=== PATIENT | male | born 1940 | race Caucasian/White ===

== ENCOUNTER 2017-01-10 14:59 | Emergency (ER) | payer MEDICARE, BC ==
[~2017-01-10] VITALS: Ht 175.3 cm; Wt 91.8 kg
[~2017-01-10 14:59] MED LIST: ADVIL200 MG PO; ASPI325T6 PO; ASPIRIN 32325 MG/TAB PO; ASPIRIN 81M81 MG/TA2 PO; BUFFERED ASPIR325 M1 PO; CARDURA 1MG1 MG PO; CEPHALEXIN500 M1 PO; EXCEDRIN1 TAB PO; FERROUS SU325 MG/TAB PO; FOLIC ACID 40400 MCG PO; FOLIC ACID0.4 MG PO; HCTZ; MEDROL 4MG DOSPA4 MG PO; NIACIN50 MG PO; NORCO 325 MG-7.1 TAB PO; PEPCID AC 10MG10 MG PO; PRILOSEC 20MG20 MG PO; SENOKOT8.6 MG PO; TYLENOL EXTRA500 M1 PO; ULTRAM 50MG TAB50 MG PO; VITAMIN C500 MG PO
[2017-01-10 15:05] VITALS: TEMP 101.1
[2017-01-10 16:21] LABS: BASO # 0.1 (0.0-0.2); BASO % 0.4 % (0.0-2.0); EOS % 0.2 % (0-4.0); GRAN # 11.5 (1.4-6.5); GRAN % 86.6 % (42.2-75.2); HEMATOCRIT 42.3 % (42.0-52.0); HEMOGLOBIN 14.1 g/dl (13.5-18.0); LYMPH # 0.8 (1.2-3.4); LYMPH % 5.9 % (20.0-51.0); MEAN CELL VOLUME 95 fl (80.0-100.0); MEAN CORPUSCULAR HEMOGLOBIN 32 pg (27.0-31.0); MEAN CORPUSCULAR HGB CONC 33 g/dl (33.0-37.0); MEAN PLATELET VOLUME 9.5 fl (7.4-10.4); MONO # 0.9 (0.1-0.6); MONO % 6.4 % (1.7-9.3); PLATELET COUNT 174 K/mm3 (130-400); RED BLOOD COUNT 4.47 M/mm3 (4.20-5.60); WHITE BLOOD COUNT 13.3 K/mm3 (4.8-10.8)
[2017-01-10 16:37] LABS: ADJUSTED CALCIUM 8.8 mg/dL (8.4-10.2); ALBUMIN 3.8 gm/dL (3.5-5.0); BILIRUBIN,TOTAL 0.9 mg/dL (0.0-1.0); CALCIUM 8.6 mg/dL (8.4-10.2); CREATININE, serum 0.88 mg/dL (0.66-1.25); POTASSIUM 3.9 mmol/L (3.4-5.0); TOTAL PROTEIN 6.7 gm/dL (6.4-8.2)
[2017-01-10] MEDS ORDERED: ZOFRAN 4MG T4 MG/TAB PO (19:26)
[2017-01-10] MEDS ORDERED: CIPRO 500MG TA500 MG PO (19:26)
[2017-01-10] MEDS ORDERED: FLAGYL500 MG PO (19:26)
[2017-01-10 19:41] VITALS: BP 147/64; PULSE 87
== END 2017-01-10 19:41 | disposition home or self-care (01) ==
LOC: COL.ER 14:59
PROVIDERS: Emergency Medicine
DX: K52.89 Other specified noninfective gastroenteritis and colitis (principal); R42 Dizziness and giddiness; N23 Unspecified renal colic; N20.1 Calculus of ureter; I10 Essential (primary) hypertension
CPT/HCPCS: J1885; J2405; J7030; Q9967

== ENCOUNTER 2017-04-18 19:23 | Emergency (ER) | payer MEDICARE, BC ==
[~2017-04-18] VITALS: Ht 177.8 cm; Wt 90.9 kg
[~2017-04-18 19:23] MED LIST changes: +CIPRO 500MG TA500 MG PO; +FLAGYL500 MG PO; +ZOFRAN 4MG T4 MG/TAB PO
[2017-04-18 19:29] VITALS: TEMP 97.5
[2017-04-18] MEDS ORDERED: OMEGA-3 1000 MG1 CAP PO (19:34)
[2017-04-18 20:15] LABS: BASO # 0.1 (0.0-0.2); BASO % 0.5 % (0.0-2.0); EOS # 0.1 (0.0-0.7); EOS % 0.9 % (0-4.0); GRAN # 10.6 (1.4-6.5); GRAN % 78.2 % (42.2-75.2); HEMATOCRIT 45.4 % (42.0-52.0); HEMOGLOBIN 14.8 g/dl (13.5-18.0); LYMPH # 1.7 (1.2-3.4); LYMPH % 12.8 % (20.0-51.0); MEAN CELL VOLUME 95 fl (80.0-100.0); MEAN CORPUSCULAR HEMOGLOBIN 31 pg (27.0-31.0); MEAN CORPUSCULAR HGB CONC 33 g/dl (33.0-37.0); MEAN PLATELET VOLUME 9.7 fl (7.4-10.4); MONO % 7.1 % (1.7-9.3); PLATELET COUNT 188 K/mm3 (130-400); RED BLOOD COUNT 4.78 M/mm3 (4.20-5.60); WHITE BLOOD COUNT 13.6 K/mm3 (4.8-10.8)
[2017-04-18 20:26] LABS: ADJUSTED CALCIUM 9.6 mg/dL (8.4-10.2); ALANINE AMINOTRANSFERASE 33 U/L (21-72); ALBUMIN 4.3 gm/dL (3.5-5.0); ALKALINE PHOSPHATASE 82 U/L (50-136); ANION GAP 9 mmol/L (7-16); BILIRUBIN,TOTAL 0.5 mg/dL (0.0-1.0); BLOOD UREA NITROGEN 17 mg/dL (9-20); CALCIUM 9.8 mg/dL (8.4-10.2); CARBON DIOXIDE 28 mmol/L (22-30); CHLORIDE 102 mmol/L (98-107); CREATININE, serum 0.83 mg/dL (0.66-1.25); GLUCOSE 103 mg/dL (74-106); POTASSIUM 4.8 mmol/L (3.4-5.0); PROTHROMBIN TIME 11.7 SECONDS (9.7-12.8); SODIUM 139 mmol/L (137-145); TOTAL PROTEIN 7.3 gm/dL (6.4-8.2)
[2017-04-18 20:28] LABS: PARTIAL THROMBOPLASTIN TIME 30.3 SECONDS (26.0-37.0)
[2017-04-18 20:38] LABS: TROPONIN-I < 0.012 ng/mL (0.000-0.034)
[2017-04-18 21:48] LABS: COLLECTION METHOD CLEAN CATCH
[2017-04-18 21:58] LABS: MUCOUS Present /lpf; PH 5 (5-8); SQUAMOUS EPITHELIAL 0-2 /hpf; URINE APPEARANCE Clear; URINE BACTERIA None Seen /hpf; URINE BILIRUBIN Negative (NEGATIVE); URINE BLOOD Negative (NEGATIVE); URINE COLOR Straw; URINE GLUCOSE Negative (NEGATIVE); URINE KETONE Negative (NEGATIVE); URINE LEUKOCYTE ESTERASE Negative (NEGATIVE); URINE PROTEIN(semi-quant) Negative (NEGATIVE); URINE RBC None Seen /hpf; URINE UROBILINOGEN Negative (NEGATIVE); URINE WBC 0-2 /hpf
[2017-04-18 23:45] VITALS: BP 121/79; PULSE 71
== END 2017-04-18 23:46 | disposition home or self-care (01) ==
LOC: COL.ER 19:23
PROVIDERS: Emergency Medicine
DX: R55 Syncope and collapse (principal); K21.9 Gastro-esophageal reflux disease without esophagitis; Z95.0 Presence of cardiac pacemaker
CPT/HCPCS: J7050; Q9967

== ENCOUNTER 2017-07-11 11:58 | Day surgery (SDC) | payer MEDICARE, BC ==
[~2017-07-11] VITALS: Ht 175.3 cm; Wt 93.2 kg
[2017-07-11] VITALS (8 sets, daily range): BP systolic 107–157; BP diastolic 58–78; PULSE 59–78; TEMP 97.5–98.1
[~2017-07-11 11:58] MED LIST changes: +OMEGA-3 1000 MG1 CAP PO
[2017-07-11] MEDS ORDERED: MULTI VITAMINS1 TAB PO (12:22)
[2017-07-11] MEDS ORDERED: ANTIVERT 12.512.5 MG PO (12:38)
[2017-07-11 13:03] LABS: BASO # 0.1 (0.0-0.2); BASO % 0.5 % (0.0-2.0); EOS # 0.2 (0.0-0.7); EOS % 1.7 % (0-4.0); GRAN # 6.1 (1.4-6.5); HEMATOCRIT 44.8 % (42.0-52.0); LYMPH # 1.7 (1.2-3.4); LYMPH % 18.4 % (20.0-51.0); MEAN CELL VOLUME 94 fl (80.0-100.0); MEAN CORPUSCULAR HEMOGLOBIN 32 pg (27.0-31.0); MEAN CORPUSCULAR HGB CONC 34 g/dl (33.0-37.0); MEAN PLATELET VOLUME 9.3 fl (7.4-10.4); MONO # 1.1 (0.1-0.6); MONO % 11.9 % (1.7-9.3); PLATELET COUNT 225 K/mm3 (130-400); RED BLOOD COUNT 4.75 M/mm3 (4.20-5.60)
[2017-07-11 13:14] LABS: ALBUMIN 4.1 gm/dL (3.5-5.0); BILIRUBIN,TOTAL 0.3 mg/dL (0.0-1.0); CALCIUM 9.3 mg/dL (8.4-10.2); CREATININE, serum 0.84 mg/dL (0.66-1.25); TOTAL PROTEIN 7.3 gm/dL (6.4-8.2)
[2017-07-12 02:17] VITALS: BP 102/52; PULSE 74; TEMP 98.1
[2017-07-12 06:16] VITALS: BP 100/53; PULSE 65; TEMP 98.1
[2017-07-12 09:11] VITALS: BP 118/59; PULSE 62; TEMP 98.5
[2017-07-12] MEDS ORDERED: NORCO 325 MG-7.1 TAB PO (10:19)
== END 2017-07-12 10:55 | disposition home or self-care (01) ==
LOC: COL.ER 11:58 → SDCO 14:51 → SURG 17:00 → SDCO 07-12 10:55
PROVIDERS: Physician Assistant
DX: K80.10 Calculus of gallbladder with chronic cholecystitis without obstruction (principal); M19.90 Unspecified osteoarthritis, unspecified site; K44.9 Diaphragmatic hernia without obstruction or gangrene; K21.9 Gastro-esophageal reflux disease without esophagitis; Z96.653 Presence of artificial knee joint, bilateral; Z95.1 Presence of aortocoronary bypass graft; Z88.6 Allergy status to analgesic agent
CPT/HCPCS: OP; J1885; J1956; J2405; J2704; J3010; J7030

== ENCOUNTER 2018-01-22 15:49 | Inpatient (IN) | payer MEDICARE, BC ==
[~2018-01-22] VITALS: Ht 175.3 cm; Wt 84.5 kg
[~2018-01-22 15:49] MED LIST changes: +ANTIVERT 12.512.5 MG PO; +MULTI VITAMINS1 TAB PO
[2018-03-24] VITALS (11 sets, daily range): BP systolic 95–135; BP diastolic 45–70; PULSE 60–75; TEMP 97–98.4
[2018-03-24] MEDS ORDERED: TOPROL XL 50MG50 MG PO (07:24)
[2018-03-24] MEDS ORDERED: NEXIUM 24HR20 M1 PO (07:25)
[2018-03-24] MEDS ORDERED: FLOMAX 0.40.4 MG/CAP PO (15:40)
[2018-03-25] VITALS (7 sets, daily range): BP systolic 95–103; BP diastolic 48–87; PULSE 60–81; TEMP 97.8–99.9
[2018-03-25 06:16] LABS: HEMATOCRIT 37.9 % (42.0-52.0); HEMOGLOBIN 12.7 g/dl (13.5-18.0)
[2018-03-26 02:47] VITALS: BP 104/54; PULSE 63; TEMP 98.3
[2018-03-26] MEDS ORDERED: ROXICODONE 55 MG/TAB PO (06:31)
[2018-03-26] MEDS ORDERED: ULTRAM 50MG TAB50 MG PO (06:31)
[2018-03-26] MEDS ORDERED: NORCO 325 MG-7.1 TAB PO (06:31)
[2018-03-26] MEDS ORDERED: ASPI325T6 PO (06:41)
[2018-03-26 07:12] VITALS: BP 112/61; PULSE 60; TEMP 97
== END 2018-03-26 11:50 | disposition home or self-care (01) | DRG 470 ==
LOC: JCC 03-24 06:45
PROVIDERS: Orthopaedic Surgery
PROC: 0SR902A Replacement of Right Hip Joint with Metal on Polyethylene Synthetic Substitute, Uncemented, Open Approach (ICD-10-PCS; principal; 2018-03-24 09:45)
DX: M16.11 Unilateral primary osteoarthritis, right hip (principal); Z95.0 Presence of cardiac pacemaker; Z85.828 Personal history of other malignant neoplasm of skin; I08.1 Rheumatic disorders of both mitral and tricuspid valves
CPT/HCPCS: A4314; A4315; A9284; C1713; C1776; J0690; J1100; J1885; J2250; J2405; J2704; J3010; J7120

== ENCOUNTER → 2018-03-19 | Outpatient (CLI) | payer MEDICARE, BC ==
[2018-03-19 09:24] LABS: INR 1.2 (0.8-3.0); PROTHROMBIN TIME 13.1 SECONDS (9.7-12.8)
[2018-03-19 09:54] LABS: HIV 1/2 Antibodies Non-Reactive; HIV-1p24 Antigen Non-Reactive
== END ==
LOC: COL.LAB 08:49 → SURG 03-24 08:47 → EDSTATUS 03-24 08:48
PROVIDERS: Orthopaedic Surgery
DX: Z01.812 Encounter for preprocedural laboratory examination (principal); M16.11 Unilateral primary osteoarthritis, right hip; Z79.01 Long term (current) use of anticoagulants

== ENCOUNTER → 2018-10-22 | Outpatient (CLI) | payer MEDICARE, BC ==
[~2018-10-22] MED LIST changes: +FLOMAX 0.40.4 MG/CAP PO; +NEXIUM 24HR20 M1 PO; +ROXICODONE 55 MG/TAB PO; +TOPROL XL 50MG50 MG PO
== END ==
LOC: COL.RAD 09:38
DX: E04.1 Nontoxic single thyroid nodule (principal)

== ENCOUNTER → 2018-10-30 | Outpatient (CLI) | payer MEDICARE, BC ==
[~2018-10-30] VITALS: Ht 175.3 cm; Wt 89.8 kg
[2018-10-30 12:51] VITALS: BP 130/84; PULSE 70
[2018-10-30 14:30] VITALS: BP 151/93; PULSE 80
== END ==
LOC: COL.RAD 12:36
DX: E04.1 Nontoxic single thyroid nodule (principal)

== ENCOUNTER 2020-02-05 11:16 | Emergency (ER) | payer MEDICARE, BC ==
[~2020-02-05] VITALS: Ht 175.3 cm; Wt 90.9 kg
[2020-02-05 11:27] VITALS: TEMP 98
[2020-02-05] MEDS ORDERED: MEDROL 4MG DOSPA4 MG PO (12:09)
[2020-02-05 12:21] LABS: BASO # 0.1 (0.0-0.2); BASO % 0.9 % (0.0-2.0); EOS # 0.4 (0.0-0.7); EOS % 5.7 % (0-4.0); GRAN # 4.7 (1.4-6.5); GRAN % 62.1 % (42.2-75.2); HEMATOCRIT 41.1 % (42.0-52.0); HEMOGLOBIN 13.8 g/dl (13.5-18.0); LYMPH # 1.5 (1.2-3.4); LYMPH % 20.4 % (20.0-51.0); MEAN CELL VOLUME 94 fl (80.0-100.0); MEAN CORPUSCULAR HEMOGLOBIN 32 pg (27.0-31.0); MEAN CORPUSCULAR HGB CONC 34 g/dl (33.0-37.0); MEAN PLATELET VOLUME 9.5 fl (7.4-10.4); MONO # 0.8 (0.1-0.6); MONO % 10.6 % (1.7-9.3); PLATELET COUNT 204 K/mm3 (130-400); RED BLOOD COUNT 4.37 M/mm3 (4.20-5.60); REDCELL DISTRIBUTION WIDTH-CV 12.5 % (11.5-14.5)
[2020-02-05 12:24] LABS: INR 1.1 (0.8-3.0); PROTHROMBIN TIME 12.8 SECONDS (9.7-12.8)
[2020-02-05 12:33] LABS: ALANINE AMINOTRANSFERASE 17 U/L (4-49); ALBUMIN 4.1 gm/dL (3.5-5.0); ALKALINE PHOSPHATASE 83 U/L (50-136); ANION GAP 7 mmol/L (7-16); AST,SGOT 29 U/L (15-37); BILIRUBIN,TOTAL 0.5 mg/dL (0.0-1.0); BLOOD UREA NITROGEN 11 mg/dL (9-20); CALCIUM 9.3 mg/dL (8.4-10.2); CARBON DIOXIDE 27 mmol/L (22-30); CHLORIDE 101 mmol/L (98-107); CREATININE, serum 0.94 (0.66-1.25); GLUCOSE 97 mg/dL (74-106); LIPASE 34 U/L (23-300); POTASSIUM 4.2 mmol/L (3.4-5.0); SODIUM 135 mmol/L (137-145)
[2020-02-05 12:46] LABS: TROPONIN-I < 0.012 ng/mL (0.000-0.035)
[2020-02-05 13:10] VITALS: BP 105/68; PULSE 61
== END 2020-02-05 13:10 | disposition home or self-care (01) ==
LOC: COL.ER 11:16
PROVIDERS: Emergency Medicine
DX: R05 Cough (principal); Z20.828 Contact with and (suspected) exposure to other viral communicable diseases; Z95.0 Presence of cardiac pacemaker
CPT/HCPCS: J1100

== ENCOUNTER 2020-08-07 13:16 | Emergency (ER) | payer MEDICARE, BC ==
[~2020-08-07] VITALS: Ht 175.3 cm; Wt 91.8 kg
[2020-08-07 14:52] LABS: BASO % 0.3 % (0.0-2.0); EOS # 0.1 (0.0-0.7); EOS % 1.2 % (0-4.0); GRAN # 8.9 (1.4-6.5); GRAN % 74.5 % (42.2-75.2); HEMATOCRIT 42.6 % (42.0-52.0); LYMPH % 16.4 % (20.0-51.0); MEAN CELL VOLUME 95 fl (80.0-100.0); MEAN CORPUSCULAR HEMOGLOBIN 31 pg (27.0-31.0); MEAN CORPUSCULAR HGB CONC 33 g/dl (33.0-37.0); MEAN PLATELET VOLUME 9.5 fl (7.4-10.4); MONO # 0.8 (0.1-0.6); MONO % 6.9 % (1.7-9.3); PLATELET COUNT 230 K/mm3 (130-400); RED BLOOD COUNT 4.51 M/mm3 (4.20-5.60); REDCELL DISTRIBUTION WIDTH-CV 12.9 % (11.5-14.5)
[2020-08-07 15:09] LABS: ALANINE AMINOTRANSFERASE 24 U/L (4-49); ALKALINE PHOSPHATASE 76 U/L (50-136); ANION GAP 12 mmol/L (7-16); AST,SGOT 24 U/L (15-37); BILIRUBIN,TOTAL 0.3 mg/dL (0.0-1.0); BLOOD UREA NITROGEN 22 mg/dL (9-20); CALCIUM 9.2 mg/dL (8.4-10.2); CARBON DIOXIDE 24 mmol/L (22-30); CHLORIDE 101 mmol/L (98-107); CREATININE, serum 0.96 (0.66-1.25); GLUCOSE 137 mg/dL (74-106); POTASSIUM 4.2 mmol/L (3.4-5.0); SODIUM 137 mmol/L (137-145)
[2020-08-07 15:25] LABS: TROPONIN-I < 0.012 ng/mL (0.000-0.035)
[2020-08-07 15:39] LABS: TSH w REFLEX 0.509 uIU/mL (0.465-4.680)
[2020-08-07 17:36] VITALS: BP 102/61; PULSE 60; TEMP 97.6
== END 2020-08-07 17:38 | disposition home or self-care (01) ==
LOC: COL.ER 13:16
PROVIDERS: Emergency Medicine
DX: S00.83XA Contusion of other part of head, initial encounter (principal); R55 Syncope and collapse; K21.9 Gastro-esophageal reflux disease without esophagitis; Z95.0 Presence of cardiac pacemaker; W01.10XA Fall on same level from slipping, tripping and stumbling with subsequent striking against unspecified object, initial encounter

== ENCOUNTER 2023-07-26 09:18 | Emergency (ER) | payer MEDICARE, BC ==
[~2023-07-26] VITALS: Ht 172.7 cm; Wt 84.1 kg
[2023-07-26 09:25] VITALS: TEMP 97.5
[2023-07-26] MEDS ORDERED: Magnesium Citrate Oral Soln 300 ML BOTTLE PO ONE (12:00)
[2023-07-26 12:25] VITALS: BP 160/67; PULSE 74
== END 2023-07-26 12:25 | disposition home or self-care (01) ==
LOC: COL.ER 09:18
DX: K59.00 Constipation, unspecified (principal); Z90.49 Acquired absence of other specified parts of digestive tract

== ENCOUNTER → 2023-09-25 | Outpatient (CLI) | payer MEDICARE, BC ==
[~2023-09-25] MED LIST changes: +Albuterol 0.083% Neb Soln 2.5 MG/3 ML UD IH ONE; +CARAFATE 1GM1 G PO; +MIRALAX PA17 GM/Dose PO; +MOBIC 7.5MG7.5 MG PO; +STOOL SOFTENER100 M2 PO; +VESICARE 5MG5 MG PO; +WIXELA 250-501 EACH IH
== END ==
LOC: COL.CARD 09-22 12:26
DX: R05.9 Cough, unspecified (principal)

== ENCOUNTER 2023-12-02 07:25 | Inpatient (IN) | payer MEDICARE, BC ==
[~2023-12-02] VITALS: Ht 172.7 cm; Wt 91.8 kg
[~2023-12-02 07:25] MED LIST changes: -Albuterol 0.083% Neb Soln 2.5 MG/3 ML UD IH ONE; +FIBERCON PO; +LUTEIN20 M1 PO
[2023-12-02] MEDS ORDERED: NS 1,000 ML IV ONE (07:45)
[2023-12-02 07:59] LABS: BASO # 0.1 K/mm3 (0.0-0.2); BASO % 0.9 % (0.0-2.0); EOS # 0.2 K/mm3 (0.0-0.7); EOS % 2.7 % (0.0-4.0); GRAN # 3.7 K/mm3 (1.4-6.5); HEMATOCRIT 38.7 % (42.0-52.0); HEMOGLOBIN 13.3 g/dl (13.5-18.0); LYMPH % 29.6 % (20.0-51.0); MEAN CELL VOLUME 90 fl (80.0-100.0); MEAN CORPUSCULAR HEMOGLOBIN 31 pg (27-31); MEAN CORPUSCULAR HGB CONC 34 g/dl (33.0-37.0); MEAN PLATELET VOLUME 8.7 fl (7.4-10.4); MONO # 0.7 K/mm3 (0.1-0.6); MONO % 10.3 % (1.7-9.3); PLATELET COUNT 237 K/mm3 (130-400); REDCELL DISTRIBUTION WIDTH-CV 12.6 % (11.5-14.5)
[2023-12-02 08:10] LABS: INR 1.2 (0.8-3.0); PROTHROMBIN TIME 12.9 SECONDS (9.7-12.8)
[2023-12-02 08:21] LABS: ALANINE AMINOTRANSFERASE 18 U/L (0-55); ALBUMIN 3.7 g/dL (3.4-4.8); ALKALINE PHOSPHATASE 84 U/L (40-150); ANION GAP 10 mmol/L (7-16); AST,SGOT 25 U/L (5-34); BILIRUBIN,TOTAL 0.7 mg/dL (0.2-1.2); BLOOD UREA NITROGEN 10 mg/dL (8-26); CALCIUM 9.6 mg/dL (8.4-10.2); CHLORIDE 92 mEq/L (98-107); GLUCOSE 92 mg/dL (70-99); POTASSIUM 4.2 mEq/L (3.5-4.5); SODIUM 125 mEq/L (136-145); TOTAL PROTEIN 6.7 g/dl (6.2-8.1)
[2023-12-02 08:33] LABS: TROPONIN-I < 0.010 ng/mL (0.00-0.033)
[2023-12-02 10:30] VITALS: BP 155/92; PULSE 86; TEMP 97.6
--- NOTE | 2023-12-02 10:30 | NUR ---
patient arrived from er. patient on room air, denies pain at this time. no telemetry, patient has skin tear above right elbow. patient right 2nd and 4th toe abrasion/ scabbed over. Patient call light within reach. bed alarm on. seizure precaution inplace. bed alarm on.
[2023-12-02] MEDS ORDERED: Ondansetron 4 MG/2 ML VIAL IV PRN (11:00)
[2023-12-02] MEDS ORDERED: Tolvaptan 15 MG TABLET PO ONE (11:00)
[2023-12-02] MEDS ORDERED: Acetaminophen 500 MG TAB PO PRN (11:00)
[2023-12-02] MEDS ORDERED: SODIUM CHLORI1000 M4 PO (11:06)
[2023-12-02 13:11] VITALS: BP_SYST 155
[2023-12-02] MEDS ORDERED: Sucralfate 1 G TAB PO SCH (14:00)
--- NOTE | 2023-12-02 14:43 | NUR ---
AURELIO met with patient and Alexandra ([phone]) to complete initial assessment for discharge planning. Patient and live outside [place], patient sees Dr. Edd Carrasco as his PCP and he uses [facility] without difficulty. Patient has a FWW and cane at home and states he only uses his cane as needed. Patient is covered by Medicare A/B and [facility]. Patient denies having a DPOA and declines to complete one at this time. Patient plans to return home as soon as possible Discharge plan: Home
[2023-12-02 15:45] VITALS: BP 104/64; PULSE 42; TEMP 97.9
[2023-12-02 18:39] VITALS: BP_SYST 104
[2023-12-02 19:39] VITALS: BP 98/62; PULSE 72; TEMP 98.3
[2023-12-02 21:00] VITALS: BP_SYST 98
[2023-12-02] MEDS ORDERED: Omeprazole 20 MG **** subs to Pantoprazole 40 MG PO SCH (21:00)
[2023-12-02] MEDS ORDERED: Docusate Sodium 100 MG CAP PO SCH (21:00)
--- NOTE | 2023-12-02 21:21 | NUR ---
PT RESTING IN BED, ALERT AND ORIENTEDX4. ASSESSED AND GAVE NIGHT TIME MEDS. NO COMPLAINTS OF PAIN AT THIS TIME. WALKED PT TO BATHROOM WITH STAND BY ASSIST. PT COMPLAINS OF HEART BURN AND REQUESTED TUMS. THIS NURSE EXPLAINED TO PT THAT HE WAS GIVEN AN ANTACID WITH HIS NIGHT TIME MEDS. NO OTHER COMPLAINTS AT THIS TIME. CALL LIGHT WITHIN REACH.
[2023-12-02 21:26] LABS: CALCIUM 9.2 mg/dL (8.4-10.2); CREATININE, serum 0.98 mg/dL (0.72-1.25); POTASSIUM 4.5 mEq/L (3.5-4.5)
--- NOTE | 2023-12-03 | NUR ---
Recieved report from JAE Villalobos. Assumed care of patient at this time.
[2023-12-03 00:06] VITALS: BP 101/66; PULSE 79; TEMP 98.1
[2023-12-03 00:38] VITALS: BP_SYST 101
[2023-12-03 04:08] VITALS: BP 103/67; PULSE 67; TEMP 98.2
[2023-12-03 04:30] VITALS: BP_SYST 103
[2023-12-03 06:15] LABS: BASO # 0.1 K/mm3 (0.0-0.2); BASO % 0.7 % (0.0-2.0); EOS # 0.1 K/mm3 (0.0-0.7); EOS % 1.8 % (0.0-4.0); GRAN # 4.2 K/mm3 (1.4-6.5); GRAN % 59.1 % (42.2-75.2); HEMATOCRIT 37.5 % (42.0-52.0); HEMOGLOBIN 12.6 g/dl (13.5-18.0); LYMPH # 1.8 K/mm3 (1.2-3.4); LYMPH % 25.2 % (20.0-51.0); MEAN CELL VOLUME 93 fl (80.0-100.0); MEAN CORPUSCULAR HEMOGLOBIN 31 pg (27-31); MEAN CORPUSCULAR HGB CONC 34 g/dl (33.0-37.0); MEAN PLATELET VOLUME 9.4 fl (7.4-10.4); MONO # 0.9 K/mm3 (0.1-0.6); MONO % 12.8 % (1.7-9.3); PLATELET COUNT 216 K/mm3 (130-400); RED BLOOD COUNT 4.03 M/mm3 (4.20-5.60); REDCELL DISTRIBUTION WIDTH-CV 12.8 % (11.5-14.5)
[2023-12-03 06:27] LABS: CALCIUM 9.3 mg/dL (8.4-10.2); CREATININE, serum 0.98 mg/dL (0.72-1.25); MAGNESIUM 2.1 mg/dL (1.6-2.6); POTASSIUM 4.3 mEq/L (3.5-4.5)
[2023-12-03 07:25] VITALS: BP 102/59; PULSE 80; TEMP 98.2
--- NOTE | 2023-12-03 08:30 | NUR ---
patient sitting in recliner resting and wanting to go home soon. Patient alert and oriented X4. patient on room air,telemetry and seizure precaution inplace. Patient denies pain at this time. shift assesssment completed. Call light within reach. chair alarm on.
[2023-12-03 08:42] VITALS: BP_SYST 102
[2023-12-03] MEDS ORDERED: Multivitamin TAB PO SCH (09:00)
[2023-12-03] MEDS ORDERED: Lutein 20 MG CAP PO SCH (09:00)
[2023-12-03] MEDS ORDERED: DEMADEX10 MG PO (09:04)
[2023-12-03] MEDS ORDERED: Torsemide 20 MG TAB PO ONE (09:15)
--- NOTE | 2023-12-03 10:08 | NUR ---
PATIENT DISCHARGE INSTRUCTIONS GIVE. PATIENT AND VERBALIZED UNDERSTANDING. PATIENT TELE WAS DISCONTINUED AND IV REMOVED. PATIENT DISCHARGED BY WHEELCHAIR BY PCT ACCOMPANIED BY .
== END 2023-12-03 10:10 | disposition home or self-care (01) | DRG 645 ==
LOC: COL.ER 07:25 → MEDICAL 09:20
PROVIDERS: Family Medicine; ADMIT Internal Medicine
DX: E22.2 Syndrome of inappropriate secretion of antidiuretic hormone (principal); I10 Essential (primary) hypertension; R53.81 Other malaise; N40.0 Benign prostatic hyperplasia without lower urinary tract symptoms; K21.9 Gastro-esophageal reflux disease without esophagitis; I49.5 Sick sinus syndrome; Z96.641 Presence of right artificial hip joint; Z96.653 Presence of artificial knee joint, bilateral; Z95.0 Presence of cardiac pacemaker; Z90.49 Acquired absence of other specified parts of digestive tract; Z91.041 Radiographic dye allergy status; Z79.899 Other long term (current) drug therapy; Z23 Encounter for immunization
CPT/HCPCS: J1650; J7030; Q3014